=== PATIENT | male | born 1990 | race Caucasian/White ===

== ENCOUNTER 2018-04-22 13:57 | Emergency (ER) | payer BC ==
--- NOTE | 2018-04-22 15:34 | EDM.PDOC ---
ED HPI GENERAL MEDICAL PROBLEM - General Chief Complaint: Laceration Stated Complaint: RT HAND RING FINGER INJURY Time Seen by Provider: 04/22/18 14:44 Source of Information: Reports: Patient History Limitations: Reports: No Limitations - History of Present Illness INITIAL COMMENTS - FREE TEXT/NARRATIVE: This is a 27 y/o male that comes in for right 4th finger laceration after finger accidentally got slammed in a door by wind. Partial nail is torn, less than 50% of the nail, as well as a laceration to the pad of the 4th finger, about 3cm total in length. Sensation and vascularization is intact. Pain is 3/ 10. Pt does not have a history of diabetes or smoking. Right 4-Ring finger Pain Score (Numeric/FACES): 5 - Related Data Allergies Allergy/AdvReac Type Severity Reaction Status Date / Time No Known Allergies Allergy Verified 04/22/18 14:15 Home Meds: Home Meds . [No Known Home Meds] 04/22/18 [History] Past Medical History - Past Health History Medical/Surgical History: Denies Medical/Surgical History - Past Surgical History GI Surgical History: Reports: Hernia, Inguinal Other GI Surgeries/Procedures: Inguinal hernia repair x 2 Social & Family History - Family History Family Medical History: Noncontributory - Tobacco Use Smoking Status *Q: Current Every Day Smoker Years of Tobacco use: 12 Packs/Tins Daily: 0.5 - Caffeine Use Caffeine Use: Reports: Coffee, Energy Drinks, Soda, Tea - Alcohol Use Days Per Week of Alcohol Use: 2 Number of Drinks Per Day: 2 Total Drinks Per Week: 4 - Recreational Drug Use Recreational Drug Use: No ED ROS GENERAL - Review of Systems Review Of Systems: ROS reveals no pertinent complaints other than HPI. ED EXAM, SKIN/RASH Exam: See Below Exam Limited By: No Limitations General Appearance: Alert, WD/WN, No Apparent Distress Respiratory/Chest: No Respiratory Distress, Lungs Clear, Normal Breath Sounds, No Accessory Muscle Use, Chest Non-Tender Cardiovascular: Normal Peripheral Pulses, Regular Rate, Rhythm, No Edema, No Gallop, No JVD, No Murmur, No Rub Peripheral Pulses: 4+: Brachial (L), Brachial (R), Radial (L), Radial (R) Extremities: Other (2cm partial circumfrential avulsion to the right 4th finger including less than 50% of the nail) Neurological: Alert, Oriented, CN II-XII Intact, Normal Cognition, Normal Gait, Normal Reflexes, No Motor/Sensory Deficits Skin: Wound/Incision (2cm partial circumfrential avulsion to the right 4th finger including less than 50% of the nail with contusion to digital aspect of the finger) Location, Skin: Other (2cm partial circumfrential avulsion to the right 4th finger including less than 50% of the nail) ED SKIN PROCEDURES - Laceration/Wound Repair Right Distal Digit - 4th (Ring) Lac/Wound length In cm: 3 Appearance: Subcutaneous, Linear, Clean Distal NVT: Neuro & Vascular Intact Anesthetic Type: Digital Local Anesthesia - Lidocaine (Xylocaine): 1% Plain Local Anesthetic Volume: 2cc Skin Prep: Chlorhexidine (Hibiciens) Exploration/Debridement/Repair: Minimal Debridement Closed with: Sutures Suture Size: 4-0 Suture Type: Interrupted, Simple, Other (Vicryl) Course - Vital Signs Last Recorded V/S: Last Vital Signs Temp 97.9 F 04/22/18 14:25 Pulse 59 L 04/22/18 14:25 Resp 18 04/22/18 14:25 BP 128/77 04/22/18 14:25 Pulse Ox 99 04/22/18 14:25 - Orders/Labs/Meds Orders: Active Orders 24 hr Category Date Time Status Vaccines to be Administered [RC] PER UNIT ROUTINE Care 04/22/18 16:10 Active Fingers Fourth Digit Lt F3 [CR] Stat Exams 04/22/18 15:25 Taken Meds: Medications Discontinued Medications Generic Name Dose Route Start Last Admin Trade Name Dionq PRN Reason Stop Dose Admin Diphtheria/Tetanus/Acell Pertussis 0.5 ml 04/22/18 16:10 04/22/18 16:22 Adacel IM 04/22/18 16:11 0.5 ml .ONCE ONE Administration Lidocaine HCl 2 ml 04/22/18 16:10 04/22/18 16:23 Xylocaine-Mpf 1% INJECT 04/22/18 16:11 2 ml ONETIME ONE Administration - Re-Assessments/Exams Free Text/Narrative Re-Assessment/Exam: 04/22/18 15:40 I have ordered a right 4th digit Xray to r/o fracture. Departure - Departure Time of Disposition: 17:11 Disposition: Home, Self-Care 01 Condition: Good Clinical Impression: Finger laceration - Discharge Information *PRESCRIPTION DRUG MONITORING PROGRAM REVIEWED*: Not Applicable *COPY OF PRESCRIPTION DRUG MONITORING REPORT IN PATIENT [place]: Not Applicable Instructions: Laceration Care, Adult, [id number], Sutured Wound Care, Easy-to -Read Referrals: PCP,None [Primary Care Provider] - Forms: ED Department Discharge Additional Instructions: You were seen today in the ED for a laceration of the right 4th finger. You had an Xray which showed there was no fracture of the finger. You received 3 sutures to close the laceration and bandaging to protect the finger and nail. The sutures should dissolve on their own. Keep the bandage on as long as needed to protect the nail. Clean the wound and keep the bandage dry. Apply neosporin with the bandage as needed. Please return to the ED if signs of infection such as swelling, drainage, pus and/or fever. - My Orders Last 24 Hours: My Active Orders 04/22/18 15:25 Fingers Fourth Digit Lt F3 [CR] Stat 04/22/18 16:10 Vaccines to be Administered [RC] PER UNIT ROUTINE - Assessment/Plan Last 24 Hours: My Active Orders 04/22/18 15:25 Fingers Fourth Digit Lt F3 [CR] Stat 04/22/18 16:10 Vaccines to be Administered [RC] PER UNIT ROUTINE
[2018-04-22] MEDS ORDERED: Lidocaine 1% PF 2 ML SDV INJECT ONE (16:10)
[2018-04-22] MEDS ORDERED: Diphtheria,Pertussis(Acell),Tetanus Vaccine 0.5 ML SDV IM ONE (16:10)
--- NOTE | 2018-04-23 08:52 | CR ---
Left fourth finger: Four views centered to the left fourth finger were obtained. Comparison: No previous study. Joint spaces are maintained. Mild soft tissue injury is seen distally. No acute fracture, dislocation or other bony abnormality is identified. No radiopaque foreign object is seen. Impression: 1. Soft tissue injury distally. 2. No acute bony abnormality is identified. Diagnostic code #2
== END 2018-04-22 17:45 | disposition home or self-care (01) ==
LOC: JD.ED 13:57
DX: S61.214A Laceration without foreign body of right ring finger without damage to nail, initial encounter (principal); Z23 Encounter for immunization; F17.210 Nicotine dependence, cigarettes, uncomplicated; W23.0XXA Caught, crushed, jammed, or pinched between moving objects, initial encounter
CPT/HCPCS: 12002; 73140-26-F3; 73140-F3; 90471; 90715; 99283-25; 99284-25; J2001